=== PATIENT | female | born 2000 | race Caucasian/White ===

== ENCOUNTER 2021-07-30 16:42 | Emergency (ER) | payer OTHER | END 2021-07-30 18:33 | disposition home or self-care (01) | LOC: ER1 16:42 | DX: L60.0 Ingrowing nail (principal); Z88.2 Allergy status to sulfonamides; J45.909 Unspecified asthma, uncomplicated | CPT/HCPCS: 11750; 99283 ==

== ENCOUNTER 2022-02-05 15:35 | Emergency (ER) | payer OTHER ==
[2022-02-05] MEDS ORDERED: IBUPROFEN600 MG PO (19:23)
[2022-02-05] MEDS ORDERED: CLINDAMYCIN HC300 MG PO (19:23)
[2022-02-05] MEDS ORDERED: BACTROBAN OINT22 GM EXT (19:23)
== END 2022-02-05 19:29 | disposition home or self-care (01) ==
LOC: ER1 15:35
DX: L60.0 Ingrowing nail (principal); Z88.2 Allergy status to sulfonamides
CPT/HCPCS: 99283